=== PATIENT | female | born 1960 | race African-American/Black ===

== ENCOUNTER 2018-06-24 07:59 | Emergency (ER) | payer MEDICAID ==
[~2018-06-24] VITALS: Ht 165.1 cm; Wt 129.0 kg
[2018-06-24 08:12] VITALS: BP 128/75
[2018-06-24] MEDS ORDERED: LORATADINE 10MG TABLET PO SCH (11:00)
[2018-06-24] MEDS ORDERED: CETIRIZINE 10MG TABLET PO SCH (11:00)
== END 2018-06-24 12:00 | disposition left against medical advice (07) ==
LOC: ER 07:59
DX: J30.1 Allergic rhinitis due to pollen (principal); R03.0 Elevated blood-pressure reading, without diagnosis of hypertension; Z88.0 Allergy status to penicillin; Z88.2 Allergy status to sulfonamides
CPT/HCPCS: 99282